=== PATIENT | female | born 1925 | race Caucasian/White ===

== ENCOUNTER 2016-08-09 09:55 | Inpatient (IN) | payer MEDICARE, BC ==
[2016-08-09] MEDS ORDERED: IPRATROPIUM-ALBUTEROL 3 ML NEB INHALATION STA (10:12)
--- NOTE | 2016-08-09 10:14 | ED ---
General Adult HPI - General Chief complaint: Shortness of Breath Stated complaint: Diff breathing Time Seen by Provider: 08/09/16 10:05 Source: patient, EMS, RN notes reviewed Mode of arrival: EMS Limitations: no limitations - History of Present Illness Initial comments: Patient is a pleasant 89-year-old female presenting to the emergency department complaining of difficulty in breathing. Patient has a chronic cough that is unchanged. Patient has felt more short of breath for the past couple of days. Patient does have some occasional yellow sputum. No fevers. Patient does have a history of COPD. No leg pain or leg swelling. - Related Data Home Medications Medication Instructions Recorded Confirmed Montelukast [Singulair] 10 mg PO HS 08/31/15 08/09/16 Famotidine [Pepcid] 20 mg PO BID 08/09/16 08/09/16 Furosemide [Lasix] 30 mg PO DAILY 08/09/16 08/09/16 Previous Rx's Medication Instructions Recorded Metoprolol Tartrate [Lopressor] 50 mg PO BID #60 tab 08/15/15 Potassium Chloride ER [K-Dur 10] 10 meq PO DAILY #30 tab 09/30/15 Allergies Allergy/AdvReac Type Severity Reaction Status Date / Time No Known Allergies Allergy Verified 08/09/16 10:48 Review of Systems ROS Statement: Those systems with pertinent positive or pertinent negative responses have been documented in the HPI. ROS Other: All systems not noted in ROS Statement are negative. Constitutional: Denies: fever Eyes: Denies: eye pain ENT: Denies: ear pain Respiratory: Reports: cough, dyspnea Cardiovascular: Denies: chest pain Endocrine: Denies: fatigue Gastrointestinal: Denies: abdominal pain Genitourinary: Denies: dysuria Musculoskeletal: Denies: back pain Skin: Denies: rash Neurological: Denies: weakness Past Medical History Past Medical History: Asthma, Coronary Artery Disease (CAD), COPD, GERD/Reflux, Hearing Disorder / Deafness, Hyperlipidemia, Myocardial Infarction ([place]), Osteoarthritis (OA), Pneumonia Additional Past Medical History / Comment(s): Large hiatal hernia, chronic palpitations, glucoma, coronary artery disease, hyperlipidemia, previous myocardial infarctions, [place]-bilate hearing aides, admited 09/26/15 new onset CHF. Last Myocardial Infarction Date:: 2010 History of Any Multi-Drug Resistant Organisms: None Reported Past Surgical History: Cholecystectomy, Heart Catheterization With Stent, Joint Replacement Additional Past Surgical History / Comment(s): BILAT HIP REPLACMENTS, JEMIMA CATARACTS Past Anesthesia/Blood Transfusion Reactions: No Reported Reaction Date of Last Stent Placement:: 2010 Past Psychological History: No Psychological Hx Reported Smoking Status: Never smoker Past Alcohol Use History: None Reported Past Drug Use History: None Reported - Past Family History Mother Family Medical History: Diabetes Mellitus General Exam Limitations: no limitations General appearance: alert, in no apparent distress Head exam: Present: atraumatic Eye exam: Present: normal appearance, PERRL ENT exam: Present: normal oropharynx Neck exam: Present: normal inspection Respiratory exam: Present: rales Cardiovascular Exam: Present: tachycardia GI/Abdominal exam: Present: soft. Absent: tenderness Extremities exam: Present: normal inspection. Absent: pedal edema, calf tenderness Back exam: Present: normal inspection Neurological exam: Present: alert Psychiatric exam: Present: normal affect, normal mood Skin exam: Present: normal color Course Vital Signs 08/09/16 08/09/16 08/09/16 09:56 10:09 10:15 Temperature 98.9 F Pulse Rate 106 H 124 H Respiratory 18 18 22 Rate Blood Pressure 120/56 O2 Sat by Pulse 87 L Oximetry 08/09/16 08/09/16 10:23 11:57 Temperature Pulse Rate 138 H 133 H Respiratory 18 Rate Blood Pressure 141/67 O2 Sat by Pulse 98 Oximetry EKG Findings - EKG Comments: EKG Findings:: Sinus tachycardia 136. OH 120. QRS 64. QT 280. QTC 421. Normal axis. Normal QRS. Nonspecific ST-T. artifact present. Medical Decision Making - Medical Decision Making Although chest x-ray does not show definitive pneumonia there is still concern for possible infectious process and therefore patient will be started on IV antibiotics. Patient does not meet sepsis criteria secondary to no definitive source of infection. Case was discussed in detail with Dr. howell, who will admit for Dr. bee. Consult for Dr. Rodriguez. Patient states dyspnea is tolerable at this point however not resolved. Patient and family were updated - Lab Data Result diagrams: 08/09/16 10:15 08/09/16 10:15 Lab Results 08/09/16 08/09/16 08/09/16 Range/Units 10:15 10:15 10:15 WBC 11.9 H (3.8-10.6) k/uL RBC 3.69 L (3.80-5.40) m/uL Hgb 10.5 L (11.4-16.0) gm/dL Hct 33.4 L (34.0-46.0) % MCV 90.5 (80.0-100.0) fL MCH 28.4 (25.0-35.0) pg MCHC 31.4 (31.0-37.0) g/dL RDW 15.9 H (11.5-15.5) % Plt Count 190 (150-450) k/uL Neutrophils % 75 % Lymphocytes % 19 % Monocytes % 3 % Eosinophils % 0 % Basophils % 1 % Neutrophils # 8.9 H (1.3-7.7) k/uL Lymphocytes # 2.3 (1.0-4.8) k/uL Monocytes # 0.4 (0-1.0) k/uL Eosinophils # 0.0 (0-0.7) k/uL Basophils # 0.1 (0-0.2) k/uL Hypochromasia Slight Poikilocytosis Slight PT (9.0-12.0) sec INR (<1.1) APTT (22.0-30.0) sec Sodium 146 H (137-145) mmol/L Potassium 3.2 L (3.5-5.1) mmol/L Chloride 99 (98-107) mmol/L Carbon Dioxide 38 H (22-30) mmol/L Anion Gap 9 mmol/L BUN 28 H (7-17) mg/dL Creatinine 0.88 (0.52-1.04) mg/dL Est GFR (MDRD) Af Amer >60 (>60 ml/min/1.73 sqM) Est GFR (MDRD) Non-Af >60 (>60 ml/min/1.73 sqM) Glucose 116 H (74-99) mg/dL Plasma Lactic Acid Alberto 1.8 (0.7-2.0) mmol/L Calcium 8.3 L (8.4-10.2) mg/dL Total Bilirubin 1.3 (0.2-1.3) mg/dL AST 26 (14-36) U/L ALT 28 (9-52) U/L Alkaline Phosphatase 107 (38-126) U/L Total Protein 5.7 L (6.3-8.2) g/dL Albumin 2.6 L (3.5-5.0) g/dL Influenza Type A RNA (Not Detectd) Influenza Type B (PCR) (Not Detectd) 08/09/16 08/09/16 Range/Units 10:15 10:18 WBC (3.8-10.6) k/uL RBC (3.80-5.40) m/uL Hgb (11.4-16.0) gm/dL Hct (34.0-46.0) % MCV (80.0-100.0) fL MCH (25.0-35.0) pg MCHC (31.0-37.0) g/dL RDW (11.5-15.5) % Plt Count (150-450) k/uL Neutrophils % % Lymphocytes % % Monocytes % % Eosinophils % % Basophils % % Neutrophils # (1.3-7.7) k/uL Lymphocytes # (1.0-4.8) k/uL Monocytes # (0-1.0) k/uL Eosinophils # (0-0.7) k/uL Basophils # (0-0.2) k/uL Hypochromasia Poikilocytosis PT 12.3 H (9.0-12.0) sec INR 1.2 (<1.1) APTT 22.1 (22.0-30.0) sec Sodium (137-145) mmol/L Potassium (3.5-5.1) mmol/L Chloride (98-107) mmol/L Carbon Dioxide (22-30) mmol/L Anion Gap mmol/L BUN (7-17) mg/dL Creatinine (0.52-1.04) mg/dL Est GFR (MDRD) Af Amer (>60 ml/min/1.73 sqM) Est GFR (MDRD) Non-Af (>60 ml/min/1.73 sqM) Glucose (74-99) mg/dL Plasma Lactic Acid Alberto (0.7-2.0) mmol/L Calcium (8.4-10.2) mg/dL Total Bilirubin (0.2-1.3) mg/dL AST (14-36) U/L ALT (9-52) U/L Alkaline Phosphatase (38-126) U/L Total Protein (6.3-8.2) g/dL Albumin (3.5-5.0) g/dL Influenza Type A RNA Not Detected (Not Detectd) Influenza Type B (PCR) Not Detected (Not Detectd) - Radiology Data Radiology results: image reviewed (Chest x-ray shows some reticulonodular infiltrates. Suspect small left effusion. Left ankle x-ray shows no acute process.) Disposition Clinical Impression: Acute exacerbation of chronic obstructive airways disease Disposition: ADMITTED IP TO THIS HOSP Condition: Serious Time of Disposition: 12:10
[2016-08-09 10:24] LABS: Basophils # (A) 0.1 k/uL (0-0.2); Basophils % (A) 1 %; CHCM 32.2; Eosinophils % (A) 0 %; HCT 33.4 % (34.0-46.0); HDW 3.83; HGB 10.5 gm/dL (11.4-16.0); Hypochromasia Slight; Luc # (Auto) 0.22; Luc % (Auto) 2; Lymphocytes # (A) 2.3 k/uL (1.0-4.8); Lymphocytes % (A) 19 %; MCH 28.4 pg (25.0-35.0); MCHC 31.4 g/dL (31.0-37.0); MCV 90.5 fL (80.0-100.0); Mean Platelet Volume 7.3; Monocytes # (A) 0.4 k/uL (0-1.0); Monocytes % (A) 3 %; Neutrophils # (A) 8.9 k/uL (1.3-7.7); Neutrophils % (A) 75 %; Poikilocytosis Slight; RBC 3.69 m/uL (3.80-5.40); RDW 15.9 % (11.5-15.5); WBC 11.9 k/uL (3.8-10.6); WBC (Perox) 12.55
[2016-08-09 10:36] LABS: ALT 28 U/L (9-52); AST 26 U/L (14-36); Alkaline Phosphatase 107 U/L (38-126); Anion Gap 9 mmol/L; Blood Urea Nitrogen 28 mg/dL (7-17); Calcium 8.3 mg/dL (8.4-10.2); Carbon Dioxide 38 mmol/L (22-30); Chloride 99 mmol/L (98-107); Glucose 116 mg/dL (74-99); Non-African American GFR(MDRD) >60 (>60 ml/min/1.73 sqM); Potassium 3.2 mmol/L (3.5-5.1); Sodium 146 mmol/L (137-145); Total Bilirubin 1.3 mg/dL (0.2-1.3); Total Protein 5.7 g/dL (6.3-8.2)
[2016-08-09 10:56] LABS: INR 1.2 (<1.1); Partial Thromboplastin Time 22.1 sec (22.0-30.0); Prothrombin Time 12.3 sec (9.0-12.0)
--- NOTE | 2016-08-09 11:28 | XR ---
EXAMINATION TYPE: XR ankle complete LT DATE OF EXAM: 08/09/2016 11:07 AM COMPARISON: NONE HISTORY: Pain TECHNIQUE: 3 views of the left ankle are submitted for evaluation. FINDINGS: There is no evidence for fracture or dislocation. Ankle mortise is intact. Soft tissues are within normal limits. Osseous structures are osteopenic. IMPRESSION: 1. No evidence for acute fracture.
--- NOTE | 2016-08-09 11:38 | XR ---
EXAMINATION TYPE: XR chest 2V DATE OF EXAM: 08/09/2016 11:07 AM COMPARISON: 09/29/2015 HISTORY: Shortness of breath TECHNIQUE: Frontal and lateral views of the chest are obtained. FINDINGS: Scattered senescent parenchymal changes noted. Hyperinflation compatible with COPD. There are reticulonodular infiltrates seen throughout both lung ash. Suspect small left-sided effu ken. Moderate fixed hiatal hernia noted. Heart size is stable. Mediastinal structures are stable and grossly unremarkable. No evidence for hilar prominence. Degenerative changes dorsal spine. IMPRESSION: 1. There are reticulonodular infiltrates seen throughout both lung ash. Suspect small left-sided e ffusion.
[2016-08-09] MEDS ORDERED: methylPREDNISolone SOD SUCCI 125 MG/2 ML VIAL IV STA (12:10)
[2016-08-09] MEDS ORDERED: AZITHROMYCIN 500 MG in SODIUM CHLORIDE 0.9% 250 ML IVPB STA (12:10)
[2016-08-09] MEDS ORDERED: IPRATROPIUM-ALBUTEROL 3 ML NEB INHALATION PRN (12:10)
[2016-08-09] MEDS: SODIUM CHLORIDE 0.9% 1,000 ML IV SCH (12:35)
[2016-08-09 15:12] LABS: Hemoglobin A1C 7.5 % (4.2-6.1)
[2016-08-09] MEDS: IPRATROPIUM-ALBUTEROL 3 ML NEB INHALATION SCH ×2 (16:01→20:57)
--- NOTE | 2016-08-09 16:46 | P.HPIM ---
History of Present Illness H&P Date: 08/09/16 Chief Complaint: Shortness of breath and cough This is a 89-year-old female with past medical history noted below significant for underlying pulmonary fibrosis oxygen dependent at home who presented to the emergency room with worsening shortness of breath. Patient said that her symptoms started few days ago and being getting progressively worse. She noted cough that was productive of yellowish sputum. She also was having wheezing and worsening shortness of breath. She decided to come to the emergency room for further evaluation. In the emergency room, chest x-ray showed diffuse infiltrates throughout the lung ash consistent with her known lung fibrosis. No documented fevers. Patient was started on IV Solu-Medrol, bronchodilator, and antibiotic and was admitted to the hospital for further evaluation. She said that she is feeling slightly better now. Review of Systems Review of system: 14 points review of systems were obtained and were negative except to what were mentioned in the HPI. Past Medical History Past Medical History: Asthma, Coronary Artery Disease (CAD), Heart Failure, COPD , Eye Disorder, GERD/Reflux, Hearing Disorder / Deafness, Hyperlipidemia, Myocardial Infarction ([place]), Osteoarthritis ([place]), Pneumonia Additional Past Medical History / Comment(s): Chronic cough, tracheobronchitis, lung fibrosis, home oxygen ATC, large hiatal hernia, chronic palpitations-has had atrial tachycardia, glaucoma bilaterally, [place]bilaterally with hearing aides , arthritis in multiple joints. Last Myocardial Infarction Date:: 2008 History of Any Multi-Drug Resistant Organisms: None Reported Past Surgical History: Back Surgery, Cholecystectomy, Heart Catheterization With Stent, Joint Replacement Additional Past Surgical History / Comment(s): BILAT HIP REPLACMENTS, JEMIMA CATARACTS, laminectomy. Past Anesthesia/Blood Transfusion Reactions: No Reported Reaction Date of Last Stent Placement:: 2008 Past Psychological History: No Psychological Hx Reported Additional Psychological History / Comment(s): Pt resides with her luisaMackenzie and son-in-law. She uses a walker to ambulate. She is on oxygen ATC- unsure of liter flow. Has a nebulizer. DaughterMackenzie is her valve technician. Daughter drives her to [employer]. Daughter manages pt's meds and assists her with her ADLs. Smoking Status: Never smoker Past Alcohol Use History: None Reported Past Drug Use History: None Reported - Past Family History Father History Unknown: Yes Additional Family Medical History / Comment(s): Pt never knew her father. Mother Family Medical History: Diabetes Mellitus Additional Family Medical History / Comment(s): Mother at the age of 65yrs from diabetic complications. Medications and Allergies Home Medications Medication Instructions Recorded Confirmed Type Montelukast [Singulair] 10 mg PO HS 08/31/15 08/09/16 History Famotidine [Pepcid] 20 mg PO BID 08/09/16 08/09/16 History Furosemide [Lasix] 30 mg PO DAILY 08/09/16 08/09/16 History Allergies Allergy/AdvReac Type Severity Reaction Status Date / Time No Known Allergies Allergy Verified 08/09/16 10:48 Physical Exam Vitals: Vital Signs Temp Pulse Pulse Resp BP BP Pulse Ox 08/09/16 16:13 110 H 08/09/16 16:02 110 H 08/09/16 15:56 97 F L 116 H 16 105/58 97 08/09/16 13:34 97.4 F L 109 H 14 115/63 97 08/09/16 12:37 98.7 F 134 H 16 138/67 100 Intake and Output 08/09/16 08/09/16 08/09/16 06:59 14:59 22:59 Output Total 1 Balance -1 Output: Stool 1 Other: # Voids 1 Weight 37.875 kg Patient Weight 08/10/16 06:59 Weight 37.875 kg General: The patient is lethargic but easily arousable Eye: extra-ocular movements are intact; there is normal conjunctiva bilaterally. . Neck: The neck is supple, there is no tenderness or JVD. Cardiovascular: Normal S1-S2, no S3-S4, no murmurs. Respiratory: Lungs with diffuse rhonchi and expiratory wheezing all over the chest Gastrointestinal: Abdomen is soft, nontender, nondistended, Musculoskeletal: Normal ROM, no tenderness, There is no pedal edema. Neurological: There are no obvious motor or sensory deficits. Speech is normal. Skin: Skin is warm and dry Results CBC & Chem 7: 08/09/16 10:15 08/09/16 10:15 Thrombosis Risk Factor Assmnt - Choose All That Apply Any of the Below Risk Factors Present?: Yes Each Factor Represents 1 point: Abnormal pulmonary function (COPD) Other Risk Factors: Yes Each Risk Factor Represents 3 Points: Age 75 years or older Other congenital or acquired thrombophilia - If yes, enter type in comment: No Thrombosis Risk Factor Assessment Total Risk Factor Score: 4 Thrombosis Risk Factor Assessment Level: Moderate Risk Assessment and Plan Plan: 1. Acute COPD exacerbation 2. Chronic lung fibrosis 3. Acute on chronic hypoxic respiratory failure 4. Acute bacterial tracheobronchitis 5. Chronic diastolic heart failure, now compensated 6. Large [place] hernia with severe acid reflux disease 7. Mixed hyperlipidemia 8. DVT prophylaxis with subcu heparin Today, I reviewed her medications and lab work results. Sputum and blood culture pending. Continue bronchodilators and IV steroids. Antibiotic with azithromycin and ceftriaxone awaiting cultures to finalize. Consult pulmonology for further evaluation. Repeat lab work in the morning. Continue supportive care otherwise. Wean off O2 as tolerated for O2 sats ration above 90 %.
[2016-08-09 17:06] LABS: Glucose,Whole Blood 295 mg/dL (75-99)
--- NOTE | 2016-08-09 17:12 | P.CNPUL ---
History of Present Illness Consult date: 08/09/16 Requesting physician: Nicolas Santana Reason for consult: pneumonia Chief complaint: Shortness of breath and cough. History of present illness: This is an 89-year-old female with history of multiple medical problems including chronic nodular infiltrates in both lungs based on previous x-rays and CT of the chest, patient is also known to have history of asthma, coronary artery disease, congestive heart failure, previous [place], hiatal hernia and severe reflux, patient normally sees Dr. Yin on follow-up in the office, she has chronic hypoxic respiratory failure, O2 dependent. Patient was admitted with a few days' history of increased shortness of breath, productive cough with yellow sputum, wheezing, denies any fever no chills no hemoptysis no chest pain. Chest x-ray showed diffuse nodular infiltrates, possibility of right lower lobe pneumonia or left retrocardiac pneumonia is not entirely ruled out. Patient was admitted, placed on bronchodilators, Solu-Medrol, antibiotics in the form of Rocephin and Zithromax, and I was asked to see her on consultation. Patient denies any headaches no blurred vision no dizziness. No fever no chills no hemoptysis no chest pain no nausea she does have history of GERD, no abdominal pain, no melena, no hematemesis, no dysuria frequency or urgency. Review of Systems 14 point review of systems were obtained, please refer to pertinent positives and negatives in HPI. Past Medical History Past Medical History: Asthma, Coronary Artery Disease (CAD), Heart Failure, COPD , Eye Disorder, GERD/Reflux, Hearing Disorder / Deafness, Hyperlipidemia, Myocardial Infarction ([place]), Osteoarthritis (OA), Pneumonia Additional Past Medical History / Comment(s): Chronic cough, tracheobronchitis, lung fibrosis, home oxygen ATC, large hiatal hernia, chronic palpitations-has had atrial tachycardia, glaucoma bilaterally, [place]-bilaterally with hearing aides , arthritis in multiple joints. Last Myocardial Infarction Date:: 2008 History of Any Multi-Drug Resistant Organisms: None Reported Past Surgical History: Back Surgery, Cholecystectomy, Heart Catheterization With Stent, Joint Replacement Additional Past Surgical History / Comment(s): BILAT HIP REPLACMENTS, JEMIMA CATARACTS, laminectomy. Past Anesthesia/Blood Transfusion Reactions: No Reported Reaction Date of Last Stent Placement:: 2008 Past Psychological History: No Psychological Hx Reported Additional Psychological History / Comment(s): Pt resides with her luisa, Mackenzie and son-in-law. She uses a walker to ambulate. She is on oxygen ATC- unsure of liter flow. Has a nebulizer. Daughter, Mackenzie is her protohistorian. Daughter drives her to [email or web address]. Daughter manages pt's meds and assists her with her ADLs. Smoking Status: Never smoker Past Alcohol Use History: None Reported Past Drug Use History: None Reported - Past Family History Father History Unknown: Yes Additional Family Medical History / Comment(s): Pt never knew her father. Mother Family Medical History: Diabetes Mellitus Additional Family Medical History / Comment(s): Mother at the age of 65yrs from diabetic complications. Medications and Allergies Home Medications Medication Instructions Recorded Confirmed Type Montelukast [Singulair] 10 mg PO HS 08/31/15 08/09/16 History Famotidine [Pepcid] 20 mg PO BID 08/09/16 08/09/16 History Furosemide [Lasix] 30 mg PO DAILY 08/09/16 08/09/16 History Allergies Allergy/AdvReac Type Severity Reaction Status Date / Time No Known Allergies Allergy Verified 08/09/16 10:48 Physical Exam Vitals: Vital Signs Temp Pulse Pulse Resp BP BP Pulse Ox 08/09/16 16:13 110 H 08/09/16 16:02 110 H 08/09/16 15:56 97 F L 116 H 16 105/58 97 08/09/16 13:34 97.4 F L 109 H 14 115/63 97 08/09/16 12:37 98.7 F 134 H 16 138/67 100 Intake and Output 08/09/16 08/09/16 08/09/16 06:59 14:59 22:59 Output Total 1 Balance -1 Output: Stool 1 Other: # Voids 1 Weight 37.875 kg Patient Weight 08/10/16 06:59 Weight 37.875 kg Physical Exam: Revealed an elderly female, looks pale, chronically ill, frail, in no form of respiratory distress. HEENT:[Neck is supple.] [No neck masses.] [No thyromegaly.] [No JVD.] Chest: [Diffuse rhonchi and wheezes noted bilaterally..] Cardiac Exam: [Normal S1 and S2, no S3 gallop, no murmur.] Abdomen: [Soft, nontender, no megaly, no rebound, no guarding, normal bowel sounds.] Extremities: [No clubbing, no edema, no cyanosis.] Neurological Exam: [Patient is slightly lethargic, but she is arousable and alert oriented 3. Results - Laboratory Findings CBC and BMP: 08/09/16 10:15 08/09/16 10:15 PT/INR, D-dimer PT 12.3 sec (9.0-12.0) H 08/09/16 10:15 INR 1.2 (<1.1) 08/09/16 10:15 - Diagnostic Findings Chest x-ray: image reviewed (chronic parenchymal changes noted, there is evidence of reticular nodular infiltrate in both lungs and left hemidiaphragm elevation. Possibly a small left pleural effusion and a moderate fixed hiatal hernia is noted.) Assessment and Plan Plan: Impression: 1 shortness of breath, multifactorial secondary to chronic lung disease/ pulmonary fibrosis, acute exacerbation of chronic obstructive pulmonary disease , chronic anemia, chronic hypoxic respiratory failure, chronic diastolic dysfunction and some component of congestive heart failure is not entirely ruled out, large fixed hiatal hernia 2 chronic hypoxic respiratory failure, multifactorial 3 strongly suspect by basilar pneumonia, could be aspiration in nature considering the patient has severe reflux and large hiatal hernia. 4 multiple comorbidities as noted in the past medical history. Recommendation: Continue oxygen, continue DuoNeb, suggest switching antibiotics to Zosyn and Levaquin, continue Solu-Medrol, continue anti-GERD measures, gentle diuresis, and GI prophylaxis as well as DVT prophylaxis. We'll continue to follow. Time with Patient: Greater than 30
[2016-08-09] MEDS ORDERED: Potassium Replacement Protocol 1 EACH MISC MISCELLANE PRN (17:29)
[2016-08-09] MEDS: INSULIN LISPRO (humaLOG) 300 UNIT/3 ML VIAL SQ SCH ×2 (17:54→21:36)
[2016-08-09] MEDS: LEVOFLOXACIN 500MG-D5W PMX 500 MG in DEXTROSE/WATER 1 100ML.BAG IVPB SCH (17:54)
[2016-08-09] MEDS: methylPREDNISolone SOD SUCCI 125 MG/2 ML VIAL IV SCH (17:54)
[2016-08-09] MEDS: POTASSIUM CHLORIDE ER 20 MEQ TAB.ER PO SCH ×2 (18:28→20:06)
[2016-08-09] MEDS ORDERED: METOPROLOL TARTRATE 50 MG TAB PO STA (18:39)
[2016-08-09] MEDS: PIPERACILLIN-TAZOBACTAM 3.375 GM in DEXTROSE/WATER 1 50ML.BAG IVPB SCH (18:58)
[2016-08-09] MEDS: METOPROLOL TARTRATE 50 MG TAB PO SCH (20:06)
[2016-08-09] MEDS: FAMOTIDINE 20 MG TAB PO SCH (20:06)
[2016-08-09] MEDS: HEPARIN SODIUM,PORCINE 5,000 UNIT/ML 1 ML VIAL SQ SCH (20:06)
[2016-08-09] MEDS: MONTELUKAST 10 MG TAB PO SCH (20:06)
[2016-08-09] MEDS: FUROSEMIDE 10 MG/ML 2 ML VIAL IV SCH (20:07)
[2016-08-09] MEDS: BUDESONIDE 1 MG/2 ML NEBU INHALATION SCH (20:57)
[2016-08-09 21:07] LABS: Glucose,Whole Blood 184 mg/dL (75-99)
[2016-08-09 21:25] LABS: Amorphous Sediment,Urine Rare /hpf; Appearance,Urine Clear (Clear); Bilirubin,Urine Negative (Negative); Glucose,Urine (UA) 3+ (Negative); Ketones,Urine Trace (Negative); Leukocyte Esterase,Urine Negative (Negative); Mucus,Urine Rare /hpf; Nitrite,Urine Negative (Negative); Particle Count 2462; Protein,Urine 1+ (Negative); RBC,Urine 9 /hpf (0-5); Specific Gravity,Urine 1.011 (1.001-1.035); Squamous Epithelial Cell,Urine <1 /hpf (0-4); UA Billing (MACRO vs. MICRO) MICRO; Urobilinogen,Urine <2.0 mg/dL (<2.0); WBC,Urine 3 /hpf (0-5)
[2016-08-10] MEDS: PIPERACILLIN-TAZOBACTAM 3.375 GM in DEXTROSE/WATER 1 50ML.BAG IVPB SCH ×4 (00:51→23:45)
[2016-08-10] MEDS: methylPREDNISolone SOD SUCCI 125 MG/2 ML VIAL IV SCH ×3 (00:51→13:01)
[2016-08-10] MEDS: SODIUM CHLORIDE 0.9% 1,000 ML IV SCH ×2 (05:33→21:28)
[2016-08-10 07:13] LABS: Glucose,Whole Blood 145 mg/dL (75-99)
[2016-08-10] MEDS: BUDESONIDE 1 MG/2 ML NEBU INHALATION SCH ×2 (07:25→20:06)
[2016-08-10] MEDS: IPRATROPIUM-ALBUTEROL 3 ML NEB INHALATION SCH ×4 (07:25→20:06)
[2016-08-10] MEDS: INSULIN LISPRO (humaLOG) 300 UNIT/3 ML VIAL SQ SCH ×4 (08:25→21:26)
[2016-08-10] MEDS: FAMOTIDINE 20 MG TAB PO SCH (08:25)
[2016-08-10] MEDS: FUROSEMIDE 10 MG/ML 2 ML VIAL IV SCH ×2 (08:25→21:27)
[2016-08-10] MEDS: HEPARIN SODIUM,PORCINE 5,000 UNIT/ML 1 ML VIAL SQ SCH ×2 (08:25→21:27)
[2016-08-10] MEDS: METOPROLOL TARTRATE 50 MG TAB PO SCH ×2 (08:25→21:28)
[2016-08-10 09:10] LABS: Basophils # (A) 0.1 k/uL (0-0.2); Basophils % (A) 1 %; CH 29.1; CHCM 32.7; Eosinophils % (A) 0 %; HCT 31.7 % (34.0-46.0); HDW 3.93; HGB 10.4 gm/dL (11.4-16.0); Hypochromasia Slight; Luc # (Auto) 0.13; Luc % (Auto) 1; Lymphocytes # (A) 1.8 k/uL (1.0-4.8); Lymphocytes % (A) 19 %; MCH 29.4 pg (25.0-35.0); MCHC 32.8 g/dL (31.0-37.0); MCV 89.6 fL (80.0-100.0); Mean Platelet Volume 8.1; Monocytes # (A) 0.2 k/uL (0-1.0); Monocytes % (A) 2 %; Neutrophils # (A) 7.3 k/uL (1.3-7.7); Neutrophils % (A) 77 %; Poikilocytosis Slight; RBC 3.53 m/uL (3.80-5.40); RDW 15.9 % (11.5-15.5); WBC 9.5 k/uL (3.8-10.6); WBC (Perox) 9.48
[2016-08-10 10:48] LABS: Anion Gap 8 mmol/L; Blood Urea Nitrogen 27 mg/dL (7-17); Calcium 8.4 mg/dL (8.4-10.2); Carbon Dioxide 33 mmol/L (22-30); Chloride 105 mmol/L (98-107); Glucose 198 mg/dL (74-99); Magnesium 1.6 mg/dL (1.6-2.3); Non-African American GFR(MDRD) 60 (>60 ml/min/1.73 sqM); Potassium 3.9 mmol/L (3.5-5.1); Sodium 146 mmol/L (137-145)
[2016-08-10 11:40] LABS: Glucose,Whole Blood 268 mg/dL (75-99)
[2016-08-10] MEDS ORDERED: AZITHROMYCIN 500 MG TAB PO SCH (12:00)
--- NOTE | 2016-08-10 12:14 | P.PN ---
Subjective Patient is feeling slightly better today. She continues to have a lot of cough that is productive of yellowish sputum. Objective - Vital Signs Vital signs: Vital Signs Temp 96.9 F L 08/10/16 07:00 Pulse 82 08/10/16 11:43 Resp 16 08/10/16 08:00 BP 118/59 08/10/16 07:00 Pulse Ox 96 08/10/16 07:28 Intake & Output 08/09/16 08/10/16 08/10/16 18:59 06:59 18:59 Output Total 1 Balance -1 Weight 37.875 kg Output: Stool 1 Other: # Voids 1 1 # Bowel Movements 0 - Exam General: The patient is awake and alert, in no distress Eye: there is normal conjunctiva bilaterally. Neck: The neck is supple, there is no JVD. Cardiovascular: Normal S1-S2, no S3-S4, no murmurs. Respiratory: Lungs with diffuse rhonchi and rales all over the chest Gastrointestinal: Abdomen is soft, nontender Musculoskeletal: There is no pedal edema. Neurological:. Speech is normal. Skin: Skin is warm and dry - Labs CBC & Chem 7: 08/10/16 08:33 08/10/16 08:33 Labs: Abnormal Lab Results - Last 24 Hours (Table) 08/09/16 08/09/16 08/09/16 Range/Units 16:59 21:00 21:05 RBC (3.80-5.40) m/uL Hgb (11.4-16.0) gm/dL Hct (34.0-46.0) % RDW (11.5-15.5) % Sodium (137-145) mmol/L Carbon Dioxide (22-30) mmol/L BUN (7-17) mg/dL Glucose (74-99) mg/dL POC Glucose (mg/dL) 295 H 184 H (75-99) mg/dL Urine Protein 1+ H (Negative) Urine Glucose (UA) 3+ H (Negative) Urine Ketones Trace H (Negative) Urine Blood Small H (Negative) Urine RBC 9 H (0-5) /hpf Amorphous Sediment Rare H (None) /hpf Hyaline Casts 8 H (0-2) /lpf Urine Mucus Rare H (None) /hpf 08/10/16 08/10/16 08/10/16 Range/Units 07:10 08:33 08:33 RBC 3.53 L (3.80-5.40) m/uL Hgb 10.4 L (11.4-16.0) gm/dL Hct 31.7 L (34.0-46.0) % RDW 15.9 H (11.5-15.5) % Sodium 146 H (137-145) mmol/L Carbon Dioxide 33 H (22-30) mmol/L BUN 27 H (7-17) mg/dL Glucose 198 H (74-99) mg/dL POC Glucose (mg/dL) 145 H (75-99) mg/dL Urine Protein (Negative) Urine Glucose (UA) (Negative) Urine Ketones (Negative) Urine Blood (Negative) Urine RBC (0-5) /hpf Amorphous Sediment (None) /hpf Hyaline Casts (0-2) /lpf Urine Mucus (None) /hpf 08/10/16 Range/Units 11:35 RBC (3.80-5.40) m/uL Hgb (11.4-16.0) gm/dL Hct (34.0-46.0) % RDW (11.5-15.5) % Sodium (137-145) mmol/L Carbon Dioxide (22-30) mmol/L BUN (7-17) mg/dL Glucose (74-99) mg/dL POC Glucose (mg/dL) 268 H (75-99) mg/dL Urine Protein (Negative) Urine Glucose (UA) (Negative) Urine Ketones (Negative) Urine Blood (Negative) Urine RBC (0-5) /hpf Amorphous Sediment (None) /hpf Hyaline Casts (0-2) /lpf Urine Mucus (None) /hpf Microbiology - Last 24 Hours (Table) 08/09/16 21:00 Urine Culture - Preliminary Urine,Voided Assessment and Plan Plan: 1. Acute COPD exacerbation 2. Chronic lung fibrosis 3. Acute on chronic hypoxic respiratory failure 4. Acute bacterial tracheobronchitis 5. Acute on chronic diastolic heart failure currently on IV Lasix 6. Large [place] hernia with severe acid reflux disease 7. Mixed hyperlipidemia 8. DVT prophylaxis with subcu heparin Today, I reviewed her medications and lab work results. Sputum and blood culture pending. Continue bronchodilators and IV steroids. Antibiotic switched to Zosyn with concerns about possible aspiration. Pulmonology following, appreciate recommendations. Repeat lab work in the morning. Continue supportive care otherwise. Wean off O2 as tolerated for O2 sats ration above 90%.
--- NOTE | 2016-08-10 14:15 | P.PN ---
Subjective Principal diagnosis: Acute on chronic hypoxic respiratory failure This is an 89-year-old female with history of multiple medical problems including chronic nodular infiltrates in both lungs based on previous x-rays and CT of the chest, patient is also known to have history of asthma, coronary artery disease, congestive heart failure, previous [place], hiatal hernia and severe reflux, patient normally sees Dr. Yin on follow-up in the office, she has chronic hypoxic respiratory failure, O2 dependent. Patient was admitted with a few days' history of increased shortness of breath, productive cough with yellow sputum, wheezing, denies any fever no chills no hemoptysis no chest pain. Chest x-ray showed diffuse nodular infiltrates, possibility of right lower lobe pneumonia or left retrocardiac pneumonia is not entirely ruled out. Patient was admitted, placed on bronchodilators, Solu-Medrol, antibiotics in the form of Rocephin and Zithromax, and I was asked to see her on consultation. Patient denies any headaches no blurred vision no dizziness. No fever no chills no hemoptysis no chest pain no nausea she does have history of GERD, no abdominal pain, no melena, no hematemesis, no dysuria frequency or urgency. The patient was seen again today 08/10/2016 in follow-up on the regular medical floor. She is awake and alert in no acute distress. She continues with a productive cough of yellow sputum. She does feel a little better today compared to yesterday. Her sputum culture is positive for gram-negative bacilli with ID and sensitivity to follow. She has remained afebrile. No leukocytosis. Maintaining good O2 saturations in the upper 90s on 2 L/m per nasal cannula. She does have some complaints of difficulty swallowing certain foods. Objective - Vital Signs Vital signs: Vital Signs Temp 96.9 F L 08/10/16 07:00 Pulse 82 08/10/16 11:43 Resp 16 08/10/16 08:00 BP 118/59 08/10/16 07:00 Pulse Ox 96 08/10/16 07:28 Intake & Output 08/09/16 08/10/16 08/10/16 18:59 06:59 18:59 Output Total 1 Balance -1 Weight 37.875 kg Output: Stool 1 Other: # Voids 1 1 # Bowel Movements 0 - Exam GENERAL EXAM: Frail, cachectic. Alert, active, comfortable in no apparent distress. HEAD: Normocephalic. EYES: Normal reaction of pupils, equal size. NOSE: Clear with pink turbinates. THROAT: No erythema or exudates. NECK: No masses, no JVD. CHEST: No chest wall deformity. LUNGS: Equal air entry with few scattered rhonchi, crackles in the posterior bases. Diminished. CVS: S1 and S2 normal with no audible murmurs, regular rhythm. ABDOMEN: No hepatosplenomegaly, normal bowel sounds, no guarding or rigidity. SPINE: Kyphoscoliosis SKIN: No rashes CENTRAL NERVOUS SYSTEM: No focal deficits, tone is normal in all 4 extremities. Extremities: There is no significant peripheral edema. No clubbing, no cyanosis. Peripheral pulses are intact. - Labs CBC & Chem 7: 08/10/16 08:33 08/10/16 08:33 Labs: Abnormal Lab Results - Last 24 Hours (Table) 08/09/16 08/09/16 08/09/16 Range/Units 16:59 21:00 21:05 RBC (3.80-5.40) m/uL Hgb (11.4-16.0) gm/dL Hct (34.0-46.0) % RDW (11.5-15.5) % Sodium (137-145) mmol/L Carbon Dioxide (22-30) mmol/L BUN (7-17) mg/dL Glucose (74-99) mg/dL POC Glucose (mg/dL) 295 H 184 H (75-99) mg/dL Urine Protein 1+ H (Negative) Urine Glucose (UA) 3+ H (Negative) Urine Ketones Trace H (Negative) Urine Blood Small H (Negative) Urine RBC 9 H (0-5) /hpf Amorphous Sediment Rare H (None) /hpf Hyaline Casts 8 H (0-2) /lpf Urine Mucus Rare H (None) /hpf 08/10/16 08/10/16 08/10/16 Range/Units 07:10 08:33 08:33 RBC 3.53 L (3.80-5.40) m/uL Hgb 10.4 L (11.4-16.0) gm/dL Hct 31.7 L (34.0-46.0) % RDW 15.9 H (11.5-15.5) % Sodium 146 H (137-145) mmol/L Carbon Dioxide 33 H (22-30) mmol/L BUN 27 H (7-17) mg/dL Glucose 198 H (74-99) mg/dL POC Glucose (mg/dL) 145 H (75-99) mg/dL Urine Protein (Negative) Urine Glucose (UA) (Negative) Urine Ketones (Negative) Urine Blood (Negative) Urine RBC (0-5) /hpf Amorphous Sediment (None) /hpf Hyaline Casts (0-2) /lpf Urine Mucus (None) /hpf 08/10/16 Range/Units 11:35 RBC (3.80-5.40) m/uL Hgb (11.4-16.0) gm/dL Hct (34.0-46.0) % RDW (11.5-15.5) % Sodium (137-145) mmol/L Carbon Dioxide (22-30) mmol/L BUN (7-17) mg/dL Glucose (74-99) mg/dL POC Glucose (mg/dL) 268 H (75-99) mg/dL Urine Protein (Negative) Urine Glucose (UA) (Negative) Urine Ketones (Negative) Urine Blood (Negative) Urine RBC (0-5) /hpf Amorphous Sediment (None) /hpf Hyaline Casts (0-2) /lpf Urine Mucus (None) /hpf Microbiology - Last 24 Hours (Table) 08/09/16 21:00 Urine Culture - Preliminary Urine,Voided Assessment and Plan Plan: Plan: Impression: 1 shortness of breath, multifactorial secondary to chronic lung disease/ pulmonary fibrosis, acute exacerbation of chronic obstructive pulmonary disease , chronic anemia, chronic hypoxic respiratory failure, chronic diastolic dysfunction and some component of congestive heart failure is not entirely ruled out, large fixed hiatal hernia 2 chronic hypoxic respiratory failure, multifactorial 3 strongly suspect by basilar pneumonia, could be aspiration in nature considering the patient has severe reflux and large hiatal hernia. 4 multiple comorbidities as noted in the past medical history. Plan: The patient was seen and evaluated by Dr. Rodriguez. Her sputum results were noted. We'll continue with her current antibiotic coverage. We'll have speech therapy perform a bedside swallow regarding her dysphagia. We'll continue with her other medications. We will increase her activity as tolerated. We'll continue to follow.
--- NOTE | 2016-08-10 14:16 | XR ---
EXAMINATION TYPE: XR chest 2V DATE OF EXAM: 08/10/2016 2:08 PM COMPARISON: 08/10/16 HISTORY: Shortness of breath TECHNIQUE: Frontal and lateral views of the chest are obtained. FINDINGS: Scattered senescent parenchymal changes noted. Hyperinflation compatible with COPD. Reticulonodular infiltrates persist throughout both lung ash. Small pleural effusions noted. Overa ll stable chest. Heart size is stable. Mediastinal structures are stable and grossly unremarkable. No evidence for hilar prominence. Degenerative changes dorsal spine. IMPRESSION: 1. Reticulonodular infiltrates persist throughout both lung ash. Small pleural effusions noted. Ov erall stable chest.
[2016-08-10] MEDS: methylPREDNISolone SOD SUCCI 40 MG/ML 1 ML VIAL IV SCH ×2 (15:57→23:45)
[2016-08-10 17:25] LABS: Glucose,Whole Blood 191 mg/dL (75-99)
[2016-08-10] MEDS: LEVOFLOXACIN 500MG-D5W PMX 500 MG in DEXTROSE/WATER 1 100ML.BAG IVPB SCH (20:10)
[2016-08-10 21:22] LABS: Glucose,Whole Blood 316 mg/dL (75-99)
[2016-08-10] MEDS: MONTELUKAST 10 MG TAB PO SCH (21:28)
[2016-08-10] MEDS: guaiFENesin 600 MG TABLET.ER PO SCH (22:18)
[2016-08-11 07:33] LABS: Glucose,Whole Blood 137 mg/dL (75-99)
[2016-08-11] MEDS: BUDESONIDE 1 MG/2 ML NEBU INHALATION SCH ×2 (07:55→20:11)
[2016-08-11] MEDS: IPRATROPIUM-ALBUTEROL 3 ML NEB INHALATION SCH ×4 (07:55→20:11)
[2016-08-11] MEDS: methylPREDNISolone SOD SUCCI 40 MG/ML 1 ML VIAL IV SCH ×3 (08:23→23:29)
[2016-08-11] MEDS: INSULIN LISPRO (humaLOG) 300 UNIT/3 ML VIAL SQ SCH ×4 (08:23→21:49)
[2016-08-11] MEDS: FUROSEMIDE 10 MG/ML 2 ML VIAL IV SCH ×2 (08:24→20:43)
[2016-08-11] MEDS: guaiFENesin 600 MG TABLET.ER PO SCH ×2 (08:24→20:42)
[2016-08-11] MEDS: METOPROLOL TARTRATE 50 MG TAB PO SCH ×2 (08:24→20:43)
[2016-08-11] MEDS: PIPERACILLIN-TAZOBACTAM 3.375 GM in DEXTROSE/WATER 1 50ML.BAG IVPB SCH ×3 (08:24→23:29)
[2016-08-11] MEDS: FAMOTIDINE 20 MG TAB PO SCH (08:24)
[2016-08-11] MEDS: HEPARIN SODIUM,PORCINE 5,000 UNIT/ML 1 ML VIAL SQ SCH ×2 (08:24→20:42)
[2016-08-11 09:31] LABS: Basophils # (A) 0.1 k/uL (0-0.2); Basophils % (A) 1 %; CH 28.7; CHCM 31.9; Eosinophils % (A) 0 %; HCT 32.8 % (34.0-46.0); HDW 3.74; HGB 10.4 gm/dL (11.4-16.0); Hypochromasia Moderate; Luc # (Auto) 0.17; Luc % (Auto) 1; Lymphocytes # (A) 1.8 k/uL (1.0-4.8); Lymphocytes % (A) 15 %; MCH 28.6 pg (25.0-35.0); MCHC 31.6 g/dL (31.0-37.0); MCV 90.6 fL (80.0-100.0); Mean Platelet Volume 7.6; Monocytes # (A) 0.4 k/uL (0-1.0); Monocytes % (A) 3 %; Neutrophils # (A) 10.1 k/uL (1.3-7.7); Neutrophils % (A) 81 %; Poikilocytosis Slight; RBC 3.62 m/uL (3.80-5.40); RDW 15.5 % (11.5-15.5); WBC 12.6 k/uL (3.8-10.6); WBC (Perox) 12.53
[2016-08-11 09:57] LABS: Blood Urea Nitrogen 32 mg/dL (7-17); Calcium 8.1 mg/dL (8.4-10.2); Chloride 93 mmol/L (98-107); Glucose 149 mg/dL (74-99); Magnesium 1.4 mg/dL (1.6-2.3); Non-African American GFR(MDRD) 50 (>60 ml/min/1.73 sqM); Potassium 3.5 mmol/L (3.5-5.1); Sodium 144 mmol/L (137-145)
[2016-08-11 10:24] LABS: Anion Gap 10 mmol/L; Carbon Dioxide 41 mmol/L (22-30)
[2016-08-11] MEDS ORDERED: INSULIN LISPRO (humaLOG) 300 UNIT/3 ML VIAL SQ ONE (12:15)
[2016-08-11 12:20] LABS: Glucose,Whole Blood 291 mg/dL (75-99)
--- NOTE | 2016-08-11 13:28 | P.PN ---
Subjective Principal diagnosis: Acute on chronic hypoxic respiratory failure This is an 89-year-old female with history of multiple medical problems including chronic nodular infiltrates in both lungs based on previous x-rays and CT of the chest, patient is also known to have history of asthma, coronary artery disease, congestive heart failure, previous [place], hiatal hernia and severe reflux, patient normally sees Dr. Yin on follow-up in the office, she has chronic hypoxic respiratory failure, O2 dependent. Patient was admitted with a few days' history of increased shortness of breath, productive cough with yellow sputum, wheezing, denies any fever no chills no hemoptysis no chest pain. Chest x-ray showed diffuse nodular infiltrates, possibility of right lower lobe pneumonia or left retrocardiac pneumonia is not entirely ruled out. Patient was admitted, placed on bronchodilators, Solu-Medrol, antibiotics in the form of Rocephin and Zithromax, and I was asked to see her on consultation. Patient denies any headaches no blurred vision no dizziness. No fever no chills no hemoptysis no chest pain no nausea she does have history of GERD, no abdominal pain, no melena, no hematemesis, no dysuria frequency or urgency. The patient was seen again today 08/10/2016 in follow-up on the regular medical floor. She is awake and alert in no acute distress. She continues with a productive cough of yellow sputum. She does feel a little better today compared to yesterday. Her sputum culture is positive for gram-negative bacilli with ID and sensitivity to follow. She has remained afebrile. No leukocytosis. Maintaining good O2 saturations in the upper 90s on 2 L/m per nasal cannula. She does have some complaints of difficulty swallowing certain foods. The patient is seen again today in 08/11/2016 in follow-up. She is more awake and alert. She continues with a loose cough. Her sputum is positive for pseudomonas aeruginosa. She is continued on Zosyn and Levaquin. Chest x-ray stable. She continues to maintain good O2 saturations in the mid 90s on 2 L/m per nasal cannula. Objective - Vital Signs Vital signs: Vital Signs Temp 96.9 F L 08/11/16 07:00 Pulse 96 08/11/16 11:39 Resp 18 08/11/16 07:00 BP 123/61 08/11/16 07:00 Pulse Ox 96 08/11/16 07:57 Intake & Output 08/10/16 08/11/16 08/11/16 18:59 06:59 18:59 Intake Total 200 Output Total 4 Balance -4 200 Intake: Oral 200 Output: Urine 4 Other: # Voids 1 3 - Exam GENERAL EXAM: Frail, cachectic. Alert, active, comfortable in no apparent distress. HEAD: Normocephalic. EYES: Normal reaction of pupils, equal size. NOSE: Clear with pink turbinates. THROAT: No erythema or exudates. NECK: No masses, no JVD. CHEST: No chest wall deformity. LUNGS: Equal air entry with few scattered rhonchi, crackles in the posterior bases. Diminished. CVS: S1 and S2 normal with no audible murmurs, regular rhythm. ABDOMEN: No hepatosplenomegaly, normal bowel sounds, no guarding or rigidity. SPINE: Kyphoscoliosis SKIN: No rashes CENTRAL NERVOUS SYSTEM: No focal deficits, tone is normal in all 4 extremities. Extremities: There is no significant peripheral edema. No clubbing, no cyanosis. Peripheral pulses are intact. - Labs CBC & Chem 7: 08/11/16 09:08 08/11/16 09:08 Labs: Abnormal Lab Results - Last 24 Hours (Table) 08/10/16 08/10/16 08/11/16 Range/Units 17:22 21:07 07:29 WBC (3.8-10.6) k/uL RBC (3.80-5.40) m/uL Hgb (11.4-16.0) gm/dL Hct (34.0-46.0) % Neutrophils # (1.3-7.7) k/uL Chloride (98-107) mmol/L Carbon Dioxide (22-30) mmol/L BUN (7-17) mg/dL Glucose (74-99) mg/dL POC Glucose (mg/dL) 191 H 316 H 137 H (75-99) mg/dL Calcium (8.4-10.2) mg/dL Magnesium (1.6-2.3) mg/dL 08/11/16 08/11/16 08/11/16 Range/Units 09:08 09:08 12:03 WBC 12.6 H (3.8-10.6) k/uL RBC 3.62 L (3.80-5.40) m/uL Hgb 10.4 L (11.4-16.0) gm/dL Hct 32.8 L (34.0-46.0) % Neutrophils # 10.1 H (1.3-7.7) k/uL Chloride 93 L (98-107) mmol/L Carbon Dioxide 41 H* (22-30) mmol/L BUN 32 H (7-17) mg/dL Glucose 149 H (74-99) mg/dL POC Glucose (mg/dL) 291 H (75-99) mg/dL Calcium 8.1 L (8.4-10.2) mg/dL Magnesium 1.4 L (1.6-2.3) mg/dL Microbiology - Last 24 Hours (Table) 08/09/16 21:00 Urine Culture - Final Urine,Voided Assessment and Plan Plan: Plan: Impression: 1 shortness of breath, multifactorial secondary to chronic lung disease/ pulmonary fibrosis, acute exacerbation of chronic obstructive pulmonary disease , chronic anemia, chronic hypoxic respiratory failure, chronic diastolic dysfunction and some component of congestive heart failure is not entirely ruled out, large fixed hiatal hernia 2 acute on chronic hypoxic respiratory failure, multifactorial 3 basilar pneumonia secondary to pseudomonas aeruginosa 4 multiple comorbidities as noted in the past medical history. Plan: The patient was seen and evaluated by Dr. Rodriguez. We'll continue with her current antibiotic coverage. We will increase her activity as tolerated. We' ll continue to follow.
[2016-08-11] MEDS: MAGNESIUM SULFATE-D5W PMX 1 GM in DEXTROSE/WATER 1 100ML.BAG IVPB SCH ×2 (14:15→15:27)
--- NOTE | 2016-08-11 14:22 | P.PN ---
Subjective Patient reports some improvement in her shortness of breath. Denies any chest pain or nausea vomiting. Reports about 2 days since her last bowel movement. Denies any difficulty urinating. Objective - Vital Signs Vital signs: Vital Signs Temp 96.9 F L 08/11/16 07:00 Pulse 96 08/11/16 11:39 Resp 18 08/11/16 07:00 BP 123/61 08/11/16 07:00 Pulse Ox 96 08/11/16 07:57 Intake & Output 08/10/16 08/11/16 08/11/16 18:59 06:59 18:59 Intake Total 200 Output Total 4 Balance -4 200 Intake: Oral 200 Output: Urine 4 Other: # Voids 1 3 3 # Bowel Movements 0 - Exam Head normocephalic Neck supple Lungs coarse breath sounds noted bilaterally Heart regular rate and rhythm S1-S2, no rub or gallop Abdomen is soft nontender nondistended positive bowel sounds no hepatosplenomegaly Extremities no edema Neuro alert and orientated to 3 - Labs CBC & Chem 7: 08/11/16 09:08 08/11/16 09:08 Labs: Abnormal Lab Results - Last 24 Hours (Table) 08/10/16 08/10/16 08/11/16 Range/Units 17:22 21:07 07:29 WBC (3.8-10.6) k/uL RBC (3.80-5.40) m/uL Hgb (11.4-16.0) gm/dL Hct (34.0-46.0) % Neutrophils # (1.3-7.7) k/uL Chloride (98-107) mmol/L Carbon Dioxide (22-30) mmol/L BUN (7-17) mg/dL Glucose (74-99) mg/dL POC Glucose (mg/dL) 191 H 316 H 137 H (75-99) mg/dL Calcium (8.4-10.2) mg/dL Magnesium (1.6-2.3) mg/dL 08/11/16 08/11/16 08/11/16 Range/Units 09:08 09:08 12:03 WBC 12.6 H (3.8-10.6) k/uL RBC 3.62 L (3.80-5.40) m/uL Hgb 10.4 L (11.4-16.0) gm/dL Hct 32.8 L (34.0-46.0) % Neutrophils # 10.1 H (1.3-7.7) k/uL Chloride 93 L (98-107) mmol/L Carbon Dioxide 41 H* (22-30) mmol/L BUN 32 H (7-17) mg/dL Glucose 149 H (74-99) mg/dL POC Glucose (mg/dL) 291 H (75-99) mg/dL Calcium 8.1 L (8.4-10.2) mg/dL Magnesium 1.4 L (1.6-2.3) mg/dL Microbiology - Last 24 Hours (Table) 08/09/16 21:00 Urine Culture - Final Urine,Voided Assessment and Plan Plan: 1. Acute COPD exacerbation: Currently on IV steroids and bronchodilators. Pulmonary service following 2. Chronic lung fibrosis 3. Acute on chronic hypoxic respiratory failure 4. Acute Pseudomonas aeruginosa bacterial pneumonia. Continue with IV Zosyn and Levaquin 5. Acute on chronic diastolic heart failure currently on IV Lasix 6. Large hiatal hernia with severe acid reflux disease 7. Mixed hyperlipidemia 8. DVT prophylaxis with subcu heparin 9. Continue PT OT 10. Shortness of breath multifactorial due to acute COPD exacerbation, CHF exacerbation large hiatal hernia and chronic lung fibrosis 11. Anemia hemoglobin 10.4. Check iron studies I performed an examination of the patient and discussed their management with the physician [employer] D[employer]en [employer] Maker. I have reviewed the Physician [employer] D[employer]en [employer] Maker's notes and agree with the documented findings and plan of care
[2016-08-11 14:47] LABS: % Iron Saturation 68.7 % (20-50)
[2016-08-11] MEDS: SODIUM CHLORIDE 0.9% 1,000 ML IV SCH (16:47)
[2016-08-11] MEDS: LEVOFLOXACIN 250 MG TAB PO SCH (17:15)
[2016-08-11 17:20] LABS: Glucose,Whole Blood 45 mg/dL (75-99)
[2016-08-11 17:36] LABS: Glucose,Whole Blood 65 mg/dL (75-99)
[2016-08-11 17:53] LABS: Glucose,Whole Blood 108 mg/dL (75-99)
[2016-08-11] MEDS: DORZOLAMIDE HCL 2% DROPS 10 ML BTL BOTH EYES SCH (20:43)
[2016-08-11] MEDS: LATANOPROST 0.005% OPHTH DROPS 2.5 ML BTL BOTH EYES SCH (20:43)
[2016-08-11] MEDS: MONTELUKAST 10 MG TAB PO SCH (20:44)
[2016-08-11 20:58] LABS: Glucose,Whole Blood 153 mg/dL (75-99)
[2016-08-12] MEDS: IPRATROPIUM-ALBUTEROL 3 ML NEB INHALATION SCH ×4 (07:32→20:00)
[2016-08-12] MEDS: BUDESONIDE 1 MG/2 ML NEBU INHALATION SCH ×2 (07:32→20:00)
[2016-08-12 07:33] LABS: Glucose,Whole Blood 188 mg/dL (75-99)
[2016-08-12] MEDS: INSULIN LISPRO (humaLOG) 300 UNIT/3 ML VIAL SQ SCH ×4 (08:07→20:55)
[2016-08-12] MEDS: DORZOLAMIDE HCL 2% DROPS 10 ML BTL BOTH EYES SCH ×2 (08:08→20:47)
[2016-08-12] MEDS: methylPREDNISolone SOD SUCCI 40 MG/ML 1 ML VIAL IV SCH ×2 (08:08→17:21)
[2016-08-12] MEDS: FUROSEMIDE 10 MG/ML 2 ML VIAL IV SCH ×2 (08:08→20:47)
[2016-08-12] MEDS: LATANOPROST 0.005% OPHTH DROPS 2.5 ML BTL BOTH EYES SCH ×2 (08:08→20:47)
[2016-08-12] MEDS: METOPROLOL TARTRATE 50 MG TAB PO SCH ×2 (08:09→20:47)
[2016-08-12] MEDS: guaiFENesin 600 MG TABLET.ER PO SCH ×2 (08:09→20:47)
[2016-08-12] MEDS: FAMOTIDINE 20 MG TAB PO SCH (08:09)
[2016-08-12] MEDS: SODIUM CHLORIDE 0.9% 1,000 ML IV SCH (08:09)
[2016-08-12] MEDS: HEPARIN SODIUM,PORCINE 5,000 UNIT/ML 1 ML VIAL SQ SCH ×2 (08:09→20:47)
[2016-08-12] MEDS: PIPERACILLIN-TAZOBACTAM 3.375 GM in DEXTROSE/WATER 1 50ML.BAG IVPB SCH ×2 (08:09→17:19)
[2016-08-12 09:07] LABS: Basophils # (A) 0.1 k/uL (0-0.2); Basophils % (A) 0 %; CH 29.3; CHCM 32.8; Eosinophils % (A) 0 %; HCT 33.7 % (34.0-46.0); HDW 3.94; HGB 10.9 gm/dL (11.4-16.0); Hypochromasia Slight; Luc # (Auto) 0.11; Luc % (Auto) 1; Lymphocytes # (A) 1.3 k/uL (1.0-4.8); Lymphocytes % (A) 12 %; MCH 29.2 pg (25.0-35.0); MCHC 32.5 g/dL (31.0-37.0); MCV 89.7 fL (80.0-100.0); Mean Platelet Volume 7.2; Monocytes # (A) 0.4 k/uL (0-1.0); Monocytes % (A) 3 %; Neutrophils # (A) 9.5 k/uL (1.3-7.7); Neutrophils % (A) 84 %; Poikilocytosis Slight; RBC 3.75 m/uL (3.80-5.40); RDW 15.6 % (11.5-15.5); WBC 11.4 k/uL (3.8-10.6); WBC (Perox) 12.16
[2016-08-12 09:18] LABS: Blood Urea Nitrogen 31 mg/dL (7-17); Calcium 8.1 mg/dL (8.4-10.2); Chloride 86 mmol/L (98-107); Glucose 165 mg/dL (74-99); Magnesium 2.1 mg/dL (1.6-2.3); Non-African American GFR(MDRD) 53 (>60 ml/min/1.73 sqM); Sodium 140 mmol/L (137-145)
[2016-08-12 09:25] LABS: Anion Gap 9 mmol/L
[2016-08-12 09:32] LABS: Potassium 2.9 mmol/L (3.5-5.1)
[2016-08-12 09:33] LABS: Carbon Dioxide 45 mmol/L (22-30)
[2016-08-12] MEDS: POTASSIUM CHLORIDE 10 MEQ, LIDOCAINE 2% INJ 10 MG in SODIUM CHLORIDE 0.9% 100 ML IV SCH ×3 (10:41→13:03)
--- NOTE | 2016-08-12 12:09 | P.PN ---
Subjective Principal diagnosis: Acute on chronic hypoxic respiratory failure This is an 89-year-old female with history of multiple medical problems including chronic nodular infiltrates in both lungs based on previous x-rays and CT of the chest, patient is also known to have history of asthma, coronary artery disease, congestive heart failure, previous [place], hiatal hernia and severe reflux, patient normally sees Dr. Yin on follow-up in the office, she has chronic hypoxic respiratory failure, O2 dependent. Patient was admitted with a few days' history of increased shortness of breath, productive cough with yellow sputum, wheezing, denies any fever no chills no hemoptysis no chest pain. Chest x-ray showed diffuse nodular infiltrates, possibility of right lower lobe pneumonia or left retrocardiac pneumonia is not entirely ruled out. Patient was admitted, placed on bronchodilators, Solu-Medrol, antibiotics in the form of Rocephin and Zithromax, and I was asked to see her on consultation. Patient denies any headaches no blurred vision no dizziness. No fever no chills no hemoptysis no chest pain no nausea she does have history of GERD, no abdominal pain, no melena, no hematemesis, no dysuria frequency or urgency. The patient was seen again today 08/10/2016 in follow-up on the regular medical floor. She is awake and alert in no acute distress. She continues with a productive cough of yellow sputum. She does feel a little better today compared to yesterday. Her sputum culture is positive for gram-negative bacilli with ID and sensitivity to follow. She has remained afebrile. No leukocytosis. Maintaining good O2 saturations in the upper 90s on 2 L/m per nasal cannula. She does have some complaints of difficulty swallowing certain foods. The patient is seen again today in 08/11/2016 in follow-up. She is more awake and alert. She continues with a loose cough. Her sputum is positive for pseudomonas aeruginosa. She is continued on Zosyn and Levaquin. Chest x-ray stable. She continues to maintain good O2 saturations in the mid 90s on 2 L/m per nasal cannula. The patient is seen again today 08/12/2016 in follow-up on the regular medical floor. She is currently sitting up in bed. She is awake and alert in no acute distress. She states she is breathing easier today as compared to yesterday. Continue good O2 saturations in the 90s on 2 L/m per nasal cannula. She is afebrile. Hemodynamically stable. White count stable at 11.4. Objective - Vital Signs Vital signs: Vital Signs Temp 97.5 F L 08/12/16 07:00 Pulse 76 08/12/16 11:48 Resp 18 08/12/16 08:00 BP 123/60 08/12/16 07:00 Pulse Ox 95 08/12/16 07:00 Intake & Output 08/11/16 08/12/16 08/12/16 18:59 06:59 18:59 Intake Total 200 Balance 200 Weight 65.317 kg Intake: Oral 200 Other: Voiding Method Bedside Commode # Voids 3 3 # Bowel Movements 0 2 - Exam GENERAL EXAM: Frail, cachectic. Alert, active, comfortable in no apparent distress. HEAD: Normocephalic. EYES: Normal reaction of pupils, equal size. NOSE: Clear with pink turbinates. THROAT: No erythema or exudates. NECK: No masses, no JVD. CHEST: No chest wall deformity. LUNGS: Equal air entry with few scattered rhonchi, crackles in the posterior bases. Diminished. CVS: S1 and S2 normal with no audible murmurs, regular rhythm. ABDOMEN: No hepatosplenomegaly, normal bowel sounds, no guarding or rigidity. SPINE: Kyphoscoliosis SKIN: No rashes CENTRAL NERVOUS SYSTEM: No focal deficits, tone is normal in all 4 extremities. Extremities: There is no significant peripheral edema. No clubbing, no cyanosis. Peripheral pulses are intact. - Labs CBC & Chem 7: 08/12/16 08:05 08/12/16 06:00 Labs: Abnormal Lab Results - Last 24 Hours (Table) 08/11/16 08/11/16 08/11/16 Range/Units 09:08 12:03 17:12 WBC (3.8-10.6) k/uL RBC (3.80-5.40) m/uL Hgb (11.4-16.0) gm/dL Hct (34.0-46.0) % RDW (11.5-15.5) % Neutrophils # (1.3-7.7) k/uL Potassium (3.5-5.1) mmol/L Chloride (98-107) mmol/L Carbon Dioxide (22-30) mmol/L BUN (7-17) mg/dL Glucose (74-99) mg/dL POC Glucose (mg/dL) 291 H 45 L (75-99) mg/dL Calcium (8.4-10.2) mg/dL TIBC 150 L (265-497) ug/dL % Saturation 68.7 H (20-50) % Ferritin 889 H (11-264) ng/mL 08/11/16 08/11/16 08/11/16 Range/Units 17:25 17:41 20:54 WBC (3.8-10.6) k/uL RBC (3.80-5.40) m/uL Hgb (11.4-16.0) gm/dL Hct (34.0-46.0) % RDW (11.5-15.5) % Neutrophils # (1.3-7.7) k/uL Potassium (3.5-5.1) mmol/L Chloride (98-107) mmol/L Carbon Dioxide (22-30) mmol/L BUN (7-17) mg/dL Glucose (74-99) mg/dL POC Glucose (mg/dL) 65 L 108 H 153 H (75-99) mg/dL Calcium (8.4-10.2) mg/dL TIBC (265-497) ug/dL % Saturation (20-50) % Ferritin (11-264) ng/mL 08/12/16 08/12/16 08/12/16 Range/Units 06:00 07:14 08:05 WBC 11.4 H (3.8-10.6) k/uL RBC 3.75 L (3.80-5.40) m/uL Hgb 10.9 L (11.4-16.0) gm/dL Hct 33.7 L (34.0-46.0) % RDW 15.6 H (11.5-15.5) % Neutrophils # 9.5 H (1.3-7.7) k/uL Potassium 2.9 L* (3.5-5.1) mmol/L Chloride 86 L (98-107) mmol/L Carbon Dioxide 45 H* (22-30) mmol/L BUN 31 H (7-17) mg/dL Glucose 165 H (74-99) mg/dL POC Glucose (mg/dL) 188 H (75-99) mg/dL Calcium 8.1 L (8.4-10.2) mg/dL TIBC (265-497) ug/dL % Saturation (20-50) % Ferritin (11-264) ng/mL Assessment and Plan Plan: Plan: Impression: 1 shortness of breath, multifactorial secondary to chronic lung disease/ pulmonary fibrosis, acute exacerbation of chronic obstructive pulmonary disease , chronic anemia, chronic hypoxic respiratory failure, chronic diastolic dysfunction and some component of congestive heart failure is not entirely ruled out, large fixed hiatal hernia 2 acute on chronic hypoxic respiratory failure, multifactorial 3 basilar pneumonia secondary to pseudomonas aeruginosa 4 multiple comorbidities as noted in the past medical history. Plan: The patient was seen and evaluated by Dr. Rodriguez. We'll continue with her current antibiotic coverage. We will increase her activity as tolerated. We will repeat her chest x-ray in the a.m. We'll continue to follow and make further recommendations based on her clinical status.
[2016-08-12 12:25] LABS: Glucose,Whole Blood 85 mg/dL (75-99)
--- NOTE | 2016-08-12 17:00 | P.PN ---
Subjective Principal diagnosis: Acute exacerbation of chronic obstructive pulmonary disease Patient is still complaining of shortness of breath she is still complaining of cough with minimal sputum production States she is feeling better than yesterday Objective - Vital Signs Vital signs: Vital Signs Temp 97.7 F 08/12/16 15:00 Pulse 74 08/12/16 15:40 Resp 18 08/12/16 15:00 BP 117/60 08/12/16 15:00 Pulse Ox 100 08/12/16 15:00 Intake & Output 08/11/16 08/12/16 08/12/16 18:59 06:59 18:59 Intake Total 200 Balance 200 Weight 65.317 kg Intake: Oral 200 Other: Voiding Method Bedside Commode # Voids 3 3 4 # Bowel Movements 0 3 - Exam HEENT head normocephalic and atraumatic Neck is supple no JVD no goiter no lymphadenopathy Chest is clear to auscultation no crackles no wheezing Cardiac exam reveals regular heart sounds no gallops no murmurs Abdomen is soft nontender no organomegaly Extremity exam reveals no edema no cyanosis or clubbing - Labs CBC & Chem 7: 08/12/16 08:05 08/12/16 15:25 Labs: Abnormal Lab Results - Last 24 Hours (Table) 08/11/16 08/11/16 08/11/16 Range/Units 17:12 17:25 17:41 WBC (3.8-10.6) k/uL RBC (3.80-5.40) m/uL Hgb (11.4-16.0) gm/dL Hct (34.0-46.0) % RDW (11.5-15.5) % Neutrophils # (1.3-7.7) k/uL Potassium (3.5-5.1) mmol/L Chloride (98-107) mmol/L Carbon Dioxide (22-30) mmol/L BUN (7-17) mg/dL Glucose (74-99) mg/dL POC Glucose (mg/dL) 45 L 65 L 108 H (75-99) mg/dL Calcium (8.4-10.2) mg/dL 08/11/16 08/12/16 08/12/16 Range/Units 20:54 06:00 07:14 WBC (3.8-10.6) k/uL RBC (3.80-5.40) m/uL Hgb (11.4-16.0) gm/dL Hct (34.0-46.0) % RDW (11.5-15.5) % Neutrophils # (1.3-7.7) k/uL Potassium 2.9 L* (3.5-5.1) mmol/L Chloride 86 L (98-107) mmol/L Carbon Dioxide 45 H* (22-30) mmol/L BUN 31 H (7-17) mg/dL Glucose 165 H (74-99) mg/dL POC Glucose (mg/dL) 153 H 188 H (75-99) mg/dL Calcium 8.1 L (8.4-10.2) mg/dL /09/23 Range/Units 08:05 WBC 11.4 H (3.8-10.6) k/uL RBC 3.75 L (3.80-5.40) m/uL Hgb 10.9 L (11.4-16.0) gm/dL Hct 33.7 L (34.0-46.0) % RDW 15.6 H (11.5-15.5) % Neutrophils # 9.5 H (1.3-7.7) k/uL Potassium (3.5-5.1) mmol/L Chloride (98-107) mmol/L Carbon Dioxide (22-30) mmol/L BUN (7-17) mg/dL Glucose (74-99) mg/dL POC Glucose (mg/dL) (75-99) mg/dL Calcium (8.4-10.2) mg/dL Assessment and Plan Plan: 1. Acute COPD exacerbation: Currently on IV steroids and bronchodilators. Pulmonary service following 2. Chronic lung fibrosis 3. Acute on chronic hypoxic respiratory failure 4. Acute Pseudomonas aeruginosa bacterial pneumonia. Continue with IV Zosyn and Levaquin 5. Acute on chronic diastolic heart failure currently on IV Lasix 6. Large hiatal hernia with severe acid reflux disease 7. Mixed hyperlipidemia 8. DVT prophylaxis with subcu heparin 9. Continue PT OT 10. Shortness of breath multifactorial due to acute COPD exacerbation, CHF exacerbation large hiatal hernia and chronic lung fibrosis 11. Anemia hemoglobin 10.4. Check iron studies 12. Acute hypercapnic respiratory failure will add a few doses of Diamox 13 hypokalemia correcting
[2016-08-12] MEDS: LEVOFLOXACIN 250 MG TAB PO SCH (17:21)
[2016-08-12 17:55] LABS: Glucose,Whole Blood 198 mg/dL (75-99)
[2016-08-12] MEDS: POTASSIUM CHLORIDE ER 20 MEQ TAB.ER PO SCH ×2 (18:42→20:47)
[2016-08-12] MEDS: acetaZOLAMIDE 250 MG TAB PO SCH (20:46)
[2016-08-12] MEDS: MONTELUKAST 10 MG TAB PO SCH (20:47)
[2016-08-12 20:59] LABS: Glucose,Whole Blood 166 mg/dL (75-99)
[2016-08-12] MEDS ORDERED: POTASSIUM CHLORIDE 10 MEQ in WATER FOR INJECTION 1 100ML.BAG IVPB STA (23:24)
[2016-08-13] MEDS ORDERED: POTASSIUM CHLORIDE 10 MEQ in WATER FOR INJECTION 1 100ML.BAG IVPB ONE (00:30)
[2016-08-13] MEDS: SODIUM CHLORIDE 0.9% 1,000 ML IV SCH ×2 (00:41→17:40)
[2016-08-13] MEDS: methylPREDNISolone SOD SUCCI 40 MG/ML 1 ML VIAL IV SCH ×4 (00:41→23:33)
[2016-08-13] MEDS ORDERED: POTASSIUM CHLORIDE 10 MEQ, LIDOCAINE 2% INJ 10 MG in SODIUM CHLORIDE 0.9% 100 ML IVPB SCH (02:00)
[2016-08-13] MEDS: PIPERACILLIN-TAZOBACTAM 3.375 GM in DEXTROSE/WATER 1 50ML.BAG IVPB SCH ×4 (02:40→23:33)
[2016-08-13 07:31] LABS: Glucose,Whole Blood 161 mg/dL (75-99)
[2016-08-13] MEDS: HEPARIN SODIUM,PORCINE 5,000 UNIT/ML 1 ML VIAL SQ SCH ×2 (08:32→21:26)
[2016-08-13] MEDS: guaiFENesin 600 MG TABLET.ER PO SCH ×2 (08:32→21:26)
[2016-08-13] MEDS: acetaZOLAMIDE 250 MG TAB PO SCH ×2 (08:32→21:26)
[2016-08-13] MEDS: INSULIN LISPRO (humaLOG) 300 UNIT/3 ML VIAL SQ SCH ×4 (08:33→21:27)
[2016-08-13] MEDS: METOPROLOL TARTRATE 50 MG TAB PO SCH ×2 (08:33→21:26)
[2016-08-13] MEDS: FUROSEMIDE 10 MG/ML 2 ML VIAL IV SCH (08:33)
[2016-08-13] MEDS: LATANOPROST 0.005% OPHTH DROPS 2.5 ML BTL BOTH EYES SCH ×2 (08:34→21:26)
[2016-08-13] MEDS: DORZOLAMIDE HCL 2% DROPS 10 ML BTL BOTH EYES SCH ×2 (08:34→21:26)
[2016-08-13] MEDS: FAMOTIDINE 20 MG TAB PO SCH (08:34)
[2016-08-13] MEDS: BUDESONIDE 1 MG/2 ML NEBU INHALATION SCH ×2 (09:13→19:27)
[2016-08-13] MEDS: IPRATROPIUM-ALBUTEROL 3 ML NEB INHALATION SCH ×4 (09:13→19:27)
[2016-08-13 10:03] LABS: Calcium 8.5 mg/dL (8.4-10.2); Total Bilirubin 0.8 mg/dL (0.2-1.3); Total Protein 5.8 g/dL (6.3-8.2)
[2016-08-13 10:17] LABS: Magnesium 1.8 mg/dL (1.6-2.3); Potassium 4.6 mmol/L (3.5-5.1)
[2016-08-13 10:26] LABS: Basophils # (A) 0.1 k/uL (0-0.2); Basophils % (A) 1 %; CH 28.6; CHCM 30.2; Eosinophils % (A) 0 %; HCT 36.8 % (34.0-46.0); HDW 3.54; Hypochromasia Marked; Luc # (Auto) 0.14; Luc % (Auto) 1; Lymphocytes # (A) 1.8 k/uL (1.0-4.8); Lymphocytes % (A) 13 %; MCH 28.4 pg (25.0-35.0); MCHC 29.9 g/dL (31.0-37.0); Monocytes # (A) 0.3 k/uL (0-1.0); Monocytes % (A) 3 %; Neutrophils # (A) 11.5 k/uL (1.3-7.7); Neutrophils % (A) 83 %; Poikilocytosis Slight; RBC 3.87 m/uL (3.80-5.40); RDW 15.5 % (11.5-15.5); WBC 13.8 k/uL (3.8-10.6); WBC (Perox) 14.33
[2016-08-13 10:29] LABS: MCV 95.2 fL (80.0-100.0)
--- NOTE | 2016-08-13 11:22 | P.PN ---
Subjective Principal diagnosis: Acute on chronic hypoxic respiratory failure secondary to COPD and Pseudomonas pneumonia and chronic diastolic congestive heart failure. This is an 89-year-old female with history of multiple medical problems including chronic nodular infiltrates in both lungs based on previous x-rays and CT of the chest, patient is also known to have history of asthma, coronary artery disease, congestive heart failure, previous NV, hiatal hernia and severe reflux, patient normally sees Dr. Yin on follow-up in the office, she has chronic hypoxic respiratory failure, O2 dependent. Patient was admitted with a few days' history of increased shortness of breath, productive cough with yellow sputum, wheezing, denies any fever no chills no hemoptysis no chest pain. Chest x-ray showed diffuse nodular infiltrates, possibility of right lower lobe pneumonia or left retrocardiac pneumonia is not entirely ruled out. Patient was admitted, placed on bronchodilators, Solu-Medrol, antibiotics in the form of Rocephin and Zithromax, and I was asked to see her on consultation. Patient denies any headaches no blurred vision no dizziness. No fever no chills no hemoptysis no chest pain no nausea she does have history of GERD, no abdominal pain, no melena, no hematemesis, no dysuria frequency or urgency. The patient was seen again today 08/10/2016 in follow-up on the regular medical floor. She is awake and alert in no acute distress. She continues with a productive cough of yellow sputum. She does feel a little better today compared to yesterday. Her sputum culture is positive for gram-negative bacilli with ID and sensitivity to follow. She has remained afebrile. No leukocytosis. Maintaining good O2 saturations in the upper 90s on 2 L/m per nasal cannula. She does have some complaints of difficulty swallowing certain foods. The patient is seen again today in 08/11/2016 in follow-up. She is more awake and alert. She continues with a loose cough. Her sputum is positive for pseudomonas aeruginosa. She is continued on Zosyn and Levaquin. Chest x-ray stable. She continues to maintain good O2 saturations in the mid 90s on 2 L/m per nasal cannula. The patient is seen again today 08/12/2016 in follow-up on the regular medical floor. She is currently sitting up in bed. She is awake and alert in no acute distress. She states she is breathing easier today as compared to yesterday. Continue good O2 saturations in the 90s on 2 L/m per nasal cannula. She is afebrile. Hemodynamically stable. White count stable at 11.4. Reevaluated on 08/13/2016, patient is feeling better today for the first time less cough and less wheezing less shortness of breath. Remains on the same antibiotics and bronchodilators. Her sputum was positive for Pseudomonas pneumonia. CBC showed slight leukocytosis with WBC count of 13.8 hemoglobin is 11.0 basic metabolic profile is normal BUN is 37 creatinine is 1.32, hence I will cut down on diuretics. And I plan to repeat the chest x-ray in a.m. The dose of Lasix will be 20 mg IV push daily instead of twice a day. Objective - Vital Signs Vital signs: Vital Signs Temp 96.9 F L 08/13/16 07:00 Pulse 80 08/13/16 09:36 Resp 16 08/13/16 07:00 BP 124/71 08/13/16 07:00 Pulse Ox 100 08/13/16 07:00 Intake & Output 08/12/16 08/13/16 08/13/16 18:59 06:59 18:59 Intake Total 400 Balance 400 Intake: Oral 400 Other: Voiding Method Bedside Commode Bedside Commode Bedside Commode # Voids 1 1 1 # Bowel Movements 1 1 - Exam GENERAL EXAM: Frail, cachectic. Alert, active, comfortable in no apparent distress. HEAD: Normocephalic. EYES: Normal reaction of pupils, equal size. NOSE: Clear with pink turbinates. THROAT: No erythema or exudates. NECK: No masses, no JVD. CHEST: No chest wall deformity. LUNGS: Equal air entry with few scattered rhonchi, crackles in the posterior bases. Diminished. CVS: S1 and S2 normal with no audible murmurs, regular rhythm. ABDOMEN: No hepatosplenomegaly, normal bowel sounds, no guarding or rigidity. SPINE: Kyphoscoliosis SKIN: No rashes CENTRAL NERVOUS SYSTEM: No focal deficits, tone is normal in all 4 extremities. Extremities: There is no significant peripheral edema. No clubbing, no cyanosis. Peripheral pulses are intact. - Labs CBC & Chem 7: 08/13/16 09:10 08/13/16 09:10 Labs: Abnormal Lab Results - Last 24 Hours (Table) 08/12/16 08/12/16 08/12/16 Range/Units 17:14 20:51 22:00 WBC (3.8-10.6) k/uL Hgb (11.4-16.0) gm/dL MCHC (31.0-37.0) g/dL Neutrophils # (1.3-7.7) k/uL Potassium 3.2 L (3.5-5.1) mmol/L Chloride (98-107) mmol/L Carbon Dioxide (22-30) mmol/L BUN (7-17) mg/dL Creatinine (0.52-1.04) mg/dL Glucose (74-99) mg/dL POC Glucose (mg/dL) 198 H 166 H (75-99) mg/dL Total Protein (6.3-8.2) g/dL Albumin (3.5-5.0) g/dL 08/13/16 08/13/16 08/13/16 Range/Units 07:23 09:10 09:10 WBC 13.8 H (3.8-10.6) k/uL Hgb 11.0 L (11.4-16.0) gm/dL MCHC 29.9 L (31.0-37.0) g/dL Neutrophils # 11.5 H (1.3-7.7) k/uL Potassium (3.5-5.1) mmol/L Chloride 96 L (98-107) mmol/L Carbon Dioxide 32 H (22-30) mmol/L BUN 37 H (7-17) mg/dL Creatinine 1.32 H (0.52-1.04) mg/dL Glucose 262 H (74-99) mg/dL POC Glucose (mg/dL) 161 H (75-99) mg/dL Total Protein 5.8 L (6.3-8.2) g/dL Albumin 2.7 L (3.5-5.0) g/dL Assessment and Plan Plan: 1 shortness of breath, multifactorial secondary to chronic lung disease/ pulmonary fibrosis, acute exacerbation of chronic obstructive pulmonary disease , chronic anemia, chronic hypoxic respiratory failure, chronic diastolic dysfunction and some component of congestive heart failure is not entirely ruled out, large fixed hiatal hernia 2 acute on chronic hypoxic respiratory failure, multifactorial 3 basilar pneumonia secondary to pseudomonas aeruginosa 4 multiple comorbidities as noted in the past medical history. Recommendation: Continue present course of treatment including bronchodilators, steroids, antibiotics, diuretics and the dose of diuretics was decreased, follow -up chest x-ray in a.m. Discharge planning probably in the next 24-48 hours. Time with Patient: Less than 30
[2016-08-13 12:15] LABS: Glucose,Whole Blood 190 mg/dL (75-99)
--- NOTE | 2016-08-13 12:24 | XR ---
EXAMINATION TYPE: XR chest 1V portable DATE OF EXAM: 08/13/2016 11:45 AM COMPARISON: Prior chest x-ray 10 Aug 2016 HISTORY: Pneumonia TECHNIQUE: Single frontal view of the chest is obtained. FINDINGS: Patient is rotated. No evident pneumothorax or pleural effusion. There are overlying cardi ac leads. There is a persistent diaphragmatic hernia. There are coronary artery calcifications. There are vascular and apical pleural calcifications. Surgical clips present in the right upper quadrant. The heart is enlarged. IMPRESSION: No acute abnormality evident. Cardiomegaly, diaphragmatic hernia.
[2016-08-13 17:19] LABS: Glucose,Whole Blood 250 mg/dL (75-99)
[2016-08-13] MEDS: LEVOFLOXACIN 250 MG TAB PO SCH (17:31)
--- NOTE | 2016-08-13 17:57 | P.PN ---
Subjective Principal diagnosis: Acute exacerbation of chronic obstructive pulmonary disease Patient is still complaining of shortness of breath she is still complaining of cough with minimal sputum production States she is feeling better than yesterday Patient evaluated again today, 08/13/2016, is feeling better he is still complaining of cough and shortness of breath otherwise no complaints Objective - Vital Signs Vital signs: Vital Signs Temp 97.2 F L 08/13/16 15:00 Pulse 84 08/13/16 15:00 Resp 16 08/13/16 15:00 BP 98/57 08/13/16 15:00 Pulse Ox 98 08/13/16 15:00 Intake & Output 08/12/16 08/13/16 08/13/16 18:59 06:59 18:59 Intake Total 400 240 Balance 400 240 Intake: Oral 400 240 Other: Voiding Method Bedside Commode Bedside Commode Bedside Commode # Voids 1 1 1 # Bowel Movements 1 1 - Exam HEENT head normocephalic and atraumatic Neck is supple no JVD no goiter no lymphadenopathy Chest is clear to auscultation no crackles no wheezing Cardiac exam reveals regular heart sounds no gallops no murmurs Abdomen is soft nontender no organomegaly Extremity exam reveals no edema no cyanosis or clubbing - Labs CBC & Chem 7: 08/13/16 09:10 08/13/16 09:10 Labs: Abnormal Lab Results - Last 24 Hours (Table) 08/12/16 08/12/16 08/12/16 Range/Units 17:14 20:51 22:00 WBC (3.8-10.6) k/uL Hgb (11.4-16.0) gm/dL MCHC (31.0-37.0) g/dL Neutrophils # (1.3-7.7) k/uL Potassium 3.2 L (3.5-5.1) mmol/L Chloride (98-107) mmol/L Carbon Dioxide (22-30) mmol/L BUN (7-17) mg/dL Creatinine (0.52-1.04) mg/dL Glucose (74-99) mg/dL POC Glucose (mg/dL) 198 H 166 H (75-99) mg/dL Total Protein (6.3-8.2) g/dL Albumin (3.5-5.0) g/dL 08/13/16 08/13/16 08/13/16 Range/Units 07:23 09:10 09:10 WBC 13.8 H (3.8-10.6) k/uL Hgb 11.0 L (11.4-16.0) gm/dL MCHC 29.9 L (31.0-37.0) g/dL Neutrophils # 11.5 H (1.3-7.7) k/uL Potassium (3.5-5.1) mmol/L Chloride 96 L (98-107) mmol/L Carbon Dioxide 32 H (22-30) mmol/L BUN 37 H (7-17) mg/dL Creatinine 1.32 H (0.52-1.04) mg/dL Glucose 262 H (74-99) mg/dL POC Glucose (mg/dL) 161 H (75-99) mg/dL Total Protein 5.8 L (6.3-8.2) g/dL Albumin 2.7 L (3.5-5.0) g/dL 08/13/16 08/13/16 Range/Units 12:12 17:15 WBC (3.8-10.6) k/uL Hgb (11.4-16.0) gm/dL MCHC (31.0-37.0) g/dL Neutrophils # (1.3-7.7) k/uL Potassium (3.5-5.1) mmol/L Chloride (98-107) mmol/L Carbon Dioxide (22-30) mmol/L BUN (7-17) mg/dL Creatinine (0.52-1.04) mg/dL Glucose (74-99) mg/dL POC Glucose (mg/dL) 190 H 250 H (75-99) mg/dL Total Protein (6.3-8.2) g/dL Albumin (3.5-5.0) g/dL Assessment and Plan Plan: 1. Acute COPD exacerbation: Currently on IV steroids and bronchodilators. Pulmonary service following 2. Chronic lung fibrosis 3. Acute on chronic hypoxic respiratory failure 4. Acute Pseudomonas aeruginosa bacterial pneumonia. Continue with IV Zosyn and Levaquin 5. Acute on chronic diastolic heart failure currently on IV Lasix 6. Large hiatal hernia with severe acid reflux disease 7. Mixed hyperlipidemia 8. DVT prophylaxis with subcu heparin 9. Continue PT OT 10. Shortness of breath multifactorial due to acute COPD exacerbation, CHF exacerbation large hiatal hernia and chronic lung fibrosis 11. Anemia hemoglobin 10.4. Check iron studies 12. Acute hypercapnic respiratory failure, Diamox added yesterday CO2 level is coming down 13 hypokalemia correcting
[2016-08-13 21:25] LABS: Glucose,Whole Blood 129 mg/dL (75-99)
[2016-08-13] MEDS: MONTELUKAST 10 MG TAB PO SCH (21:26)
[2016-08-14 07:23] LABS: Glucose,Whole Blood 197 mg/dL (75-99)
[2016-08-14] MEDS: BUDESONIDE 1 MG/2 ML NEBU INHALATION SCH (07:25)
[2016-08-14] MEDS: IPRATROPIUM-ALBUTEROL 3 ML NEB INHALATION SCH ×3 (07:25→16:22)
[2016-08-14] MEDS: DORZOLAMIDE HCL 2% DROPS 10 ML BTL BOTH EYES SCH (08:11)
[2016-08-14] MEDS: METOPROLOL TARTRATE 50 MG TAB PO SCH (08:12)
[2016-08-14] MEDS: HEPARIN SODIUM,PORCINE 5,000 UNIT/ML 1 ML VIAL SQ SCH (08:12)
[2016-08-14] MEDS: acetaZOLAMIDE 250 MG TAB PO SCH (08:12)
[2016-08-14] MEDS: guaiFENesin 600 MG TABLET.ER PO SCH (08:13)
[2016-08-14] MEDS: methylPREDNISolone SOD SUCCI 40 MG/ML 1 ML VIAL IV SCH (08:13)
[2016-08-14] MEDS: INSULIN LISPRO (humaLOG) 300 UNIT/3 ML VIAL SQ SCH ×2 (08:13→13:15)
[2016-08-14] MEDS: FAMOTIDINE 20 MG TAB PO SCH (08:13)
[2016-08-14] MEDS: SODIUM CHLORIDE 0.9% 1,000 ML IV SCH (08:14)
[2016-08-14] MEDS: LATANOPROST 0.005% OPHTH DROPS 2.5 ML BTL BOTH EYES SCH (08:14)
[2016-08-14] MEDS: PIPERACILLIN-TAZOBACTAM 3.375 GM in DEXTROSE/WATER 1 50ML.BAG IVPB SCH (08:18)
[2016-08-14 08:25] LABS: Calcium 8.4 mg/dL (8.4-10.2); Magnesium 1.7 mg/dL (1.6-2.3); Potassium 3.2 mmol/L (3.5-5.1); Total Bilirubin 0.6 mg/dL (0.2-1.3); Total Protein 5.3 g/dL (6.3-8.2)
[2016-08-14 08:46] LABS: CH 28.9; CHCM 30.9; HCT 33.3 % (34.0-46.0); HDW 3.58; HGB 10.2 gm/dL (11.4-16.0); Hypochromasia Marked; Immature Gran Flag Slight; MCHC 30.7 g/dL (31.0-37.0); MCV 94.2 fL (80.0-100.0); Mean Platelet Volume 8.2; Poikilocytosis Slight; RBC 3.53 m/uL (3.80-5.40); RDW 15.8 % (11.5-15.5); WBC 13.8 k/uL (3.8-10.6); WBC (Perox) 14.02
[2016-08-14] MEDS ORDERED: FUROSEMIDE 10 MG/ML 2 ML VIAL IV SCH (09:00)
[2016-08-14 10:31] LABS: Add Differential Manual Differential
[2016-08-14 10:35] LABS: Band Neutrophils % 4.5 %; Nucleated Red Blood Cells 0 /100 WBC (0-0); Total Cells Counted 200
[2016-08-14 10:44] LABS: Toxic Granulation Present
[2016-08-14 10:45] LABS: Dohle Bodies Present
[2016-08-14 11:41] LABS: Glucose,Whole Blood 148 mg/dL (75-99)
--- NOTE | 2016-08-14 12:15 | PN ---
Flores Thompson, an 89-year-old female, well known to me. She is doing better. Possible discharge to [facility]. She is not sure when. She was diagnosed with Pseudomonas aeruginosa purulent tracheobronchitis/bronchopneumonia. The patient is doing better. Still feeling very weak though. States that her legs feel very, very weak. Anyway, the patient was seen by my partner yesterday. The patient has a history of pulmonary fibrosis and COPD. This is the reason I see her. She also has a history of chronic hypoxemic respiratory failure, the acute Pseudomonas pneumonia and history of multiple medical comorbidities including heart failure. Current vital signs reveal a temperature 96.4, heart rate 78, respiratory rate 14, blood pressure 128/61, mean 83, two liter saturation 99%. Appears in no acute distress. HEENT examination is grossly unremarkable. Mucous membranes are moist. No oral lesions. NECK: Supple. Full range of motion. No adenopathy or thyromegaly. Neck veins are flat. Cardiovascular examination reveals regular rhythm and rate. S1, S2 normal. Heart sounds are distant. Soft systolic murmur. Lungs reveal bibasilar crackles. A few scattered rhonchi. Breath sounds are diminished. ABDOMEN: Soft. Bowel sounds are heard. No masses. Extremities are intact. Skin is without rash. Lab is reviewed. White count 13.8, hemoglobin 10.2, hematocrit 33.3, platelet count 202,000. Sodium 142, potassium 3.2, chloride 100, CO2 of 32, BUN and creatinine were 42 and 1.30. Total protein 5.3, albumin 2.5. A chest x-ray done on the 7th, which was yesterday, shows no acute abnormality. ASSESSMENT: 1. Shortness of breath, multifactorial, in part related to underlying chronic obstructive pulmonary disease/pulmonary fibrosis, acute Pseudomonas tracheobronchitis and possibly some mild diastolic congestive heart failure. 2. Fixed hiatal hernia. 3. Acute on chronic hypoxemic respiratory failure. 4. Multiple medical problems and comorbidities. PLAN: The patient may be discharged home today. The sputum from the third did show Pseudomonas. Laboratory data is evaluated. Medications are reviewed. No additional recommendations are made. Prognosis is guarded.
[2016-08-14] MEDS: POTASSIUM CHLORIDE 10 MEQ, LIDOCAINE 2% INJ 10 MG in SODIUM CHLORIDE 0.9% 100 ML IVPB SCH ×2 (12:24→13:35)
[2016-08-14 14:15] VITALS: BMI 16.5
--- NOTE | 2016-08-14 15:03 | P.DS ---
Providers Date of admission: 08/09/16 12:10 Expected date of discharge: 08/14/16 Attending physician: Bharathi Floyd Consults: 08/09/16 15:48 Consult Physician Routine Consulting Provider: Yadira Rodriguez Consult Reason/Comments: copd Do you want consulting provider notified?: Yes Primary care physician: Neelam Cohen [facility] Course: 1. Acute COPD exacerbation 2. Chronic lung fibrosis 3. Acute on chronic hypoxic respiratory failure 4. Acute bacterial tracheobronchitis 5. Acute on chronic diastolic heart failure currently on IV Lasix 6. Large hiatal hernia with severe acid reflux disease 7. Mixed hyperlipidemia This is a 89-year-old female with complex past medical history noted above who presented to the hospital with worsening shortness of breath. Patient was admitted to medicine floor and was seen and evaluated by pulmonology. She was treated with IV steroids, bronchodilators, and antibiotic. Her overall condition improved throughout her hospital stay. She was seen and evaluated by PT/OT. Plan to discharge her to [facility] for subacute rehab. Please refer to the electronic chart for further details about this hospitalization. Patient Condition at Discharge: Serious Plan - Discharge Summary New Discharge Prescriptions: Amoxic-Pot Clav 500-125 mg [Augmentin 500-125 mg] 1 tab PO Q12HR #10 tab methylPREDNISolone Dose Pack [Medrol Dose Pack] 4 mg PO DIRECTED #21 package Discharge Medication List Metoprolol Tartrate [Lopressor] 50 mg PO BID #60 tab 08/15/15 [Rx] Montelukast [Singulair] 10 mg PO HS 08/31/15 [History] Potassium Chloride ER [K-Dur 10] 10 meq PO DAILY #30 tab 09/30/15 [Rx] Dorzolamide HCl [Trusopt 2%] 1 drop BOTH EYES BID 08/09/16 [History] Famotidine [Pepcid] 20 mg PO BID 08/09/16 [History] Latanoprost Ophth [Xalatan 0.005%] 1 drops BOTH EYES BID 08/09/16 [History] Amoxic-Pot Clav 500-125 mg [Augmentin 500-125 mg] 1 tab PO Q12HR #10 tab [Rx] Furosemide [Lasix] 20 mg PO DAILY #0 08/14/16 [Rx] Ipratropium-Albuterol Nebulize [Duoneb 0.5 mg-3 mg/3 ml Soln] 3 ml INHALATION TID ampul.neb 08/14/16 [Rx] methylPREDNISolone Dose Pack [Medrol Dose Pack] 4 mg PO DIRECTED #21 package 08/14/16 [Rx] Follow up Appointment(s)/Referral(s): Neelam Cohen MD [Primary Care Provider] - 1-2 days Discharge Disposition: TRANSFER TO SNF/ECF
[2016-08-14 15:27] VITALS: BP 85/43; PULSE 83; RESP 16; TEMP 98.1
[2016-08-14] MEDS ORDERED: PIPERACILLIN-TAZOBACTAM 3.375 GM in DEXTROSE/WATER 1 50ML.BAG IVPB SCH (21:00)
[2016-08-15] MEDS ORDERED: methylPREDNISolone 4 MG TAB PO SCH (09:00)
[2016-08-15] MEDS ORDERED: FUROSEMIDE 20 MG TAB PO SCH (09:00)
== END 2016-08-14 17:46 | DRG 190 ==
LOC: EC 09:55 → 4MS4W 12:10
PROVIDERS: ADMIT Internal Medicine; ATTEND Internal Medicine
DX: J44.0 Chronic obstructive pulmonary disease with (acute) lower respiratory infection (principal); J15.1 Pneumonia due to Pseudomonas; J96.02 Acute respiratory failure with hypercapnia; I50.33 Acute on chronic diastolic (congestive) heart failure; J84.10 Pulmonary fibrosis, unspecified; I47.1 Supraventricular tachycardia; R13.10 Dysphagia, unspecified; D64.9 Anemia, unspecified; Z99.81 Dependence on supplemental oxygen; J96.21 Acute and chronic respiratory failure with hypoxia; J44.1 Chronic obstructive pulmonary disease with (acute) exacerbation; J20.9 Acute bronchitis, unspecified; E87.6 Hypokalemia; J45.909 Unspecified asthma, uncomplicated; I25.10 Atherosclerotic heart disease of native coronary artery without angina pectoris; K21.9 Gastro-esophageal reflux disease without esophagitis; H91.90 Unspecified hearing loss, unspecified ear; E78.2 Mixed hyperlipidemia; I25.2 Old myocardial infarction; M19.91 Primary osteoarthritis, unspecified site; H40.9 Unspecified glaucoma; K44.9 Diaphragmatic hernia without obstruction or gangrene; Z90.49 Acquired absence of other specified parts of digestive tract; Z95.5 Presence of coronary angioplasty implant and graft; Z98.42 Cataract extraction status, left eye; Z98.41 Cataract extraction status, right eye; Z96.643 Presence of artificial hip joint, bilateral; Z79.899 Other long term (current) drug therapy
CPT/HCPCS: 36415; 71010; 71020; 80048; 80053; 81001; 82728; 83036; 83540; 83550; 83605; 83735; 84132; 85025; 85610; 85730; 87040; 87070; 87077; 87086; 87186; 87205; 87502; 93005; 94640; 94760; 96374; 99285